=== PATIENT | male | born 1930 | race Two or more races ===

== ENCOUNTER 2018-06-02 13:01 | Outpatient (CLI) | payer OTHER ==
[~2018-06-02 13:01] MED LIST: COZAAR100 MG PO; HYDRODIURIL12.5 MG PO; METFORMIN HCL500 MG PO; NIASPAN; PLAVIX
== END 2018-06-02 13:08 | disposition home or self-care (01) ==
LOC: NUCLEAR 13:01
DX: I67.89 Other cerebrovascular disease (principal); I63.20 Cerebral infarction due to unspecified occlusion or stenosis of unspecified precerebral arteries